=== PATIENT | female | born 1965 ===

== ENCOUNTER → 2024-02-29 06:12 | Outpatient (CLI) | payer OTHER ==
[2024-02-29 07:13] LABS: HEMATOCRIT 40.4 % (36.0-45.00); HEMOGLOBIN 13.8 g/dL (12.0-15.00); MEAN CELL VOLUME 89.2 fL (80.00-100.00); MEAN CORPUSCULAR HEMOGLOBIN 30.4 pg (27.00-32.0); MEAN CORPUSCULAR HGB CONC 34.1 g/dl (32.0-36.0); PLATELET COUNT 251 K/uL (150-450); RED BLOOD COUNT 4.54 M/uL (4.00-6.00); RED CELL DISTRIBUTION WIDTH 13.7 % (11.5-14.5)
[2024-02-29 07:15] LABS: URINE APPEARANCE Clear; URINE BILIRRUBIN Negative (NEGATIVE); URINE BLOOD NHT; URINE COLOR Yellow; URINE GLUCOSE Negative (NEGATIVE); URINE KETONE Negative (NEGATIVE); URINE LEUKOCYTE Negative; URINE NITRATE Negative; URINE PROTEIN Negative (NEGATIVE); URINE UROBILINOGEN 0.2 E.U./dl
[2024-02-29 07:16] LABS: URINE BACTERIA 12.5 uL (0.0-1933); URINE EPITHELIAL CELLS 6.6 uL (0.0-38.8); URINE RBC 20.6 uL (0.0-20.8); URINE WBC 1.8 uL (0.0-23.2)
[2024-02-29 07:26] LABS: CREATININE URINE RANDOM 72.6 MG/DL (30-125)
[2024-02-29 07:37] LABS: URINE CAST 0.15 uL (0.0-1.40)
[2024-02-29 08:06] LABS: ALBUMIN 3.3 gm/dL (3.4-5.0); BILIRUBIN TOTAL 0.32 mg/dL (0.3-1.2); CALCIUM 9.4 mg/dL (8.5-10.1); CHOL HDL RATIO 5.1 (0-5.0); CREATININE SERUM 0.51 mg/dL (0.55-1.02); FREE TRIODOTIRONINE 2.87 pg/ml (2.18-3.98); GFR 124.74; GLOBULINA 3.7 G/DL (2.4-3.5); POTASSIUM 4.57 mEq/L (3.5-5.1); T4 FREE 0.99 NG/ML (0.76-1.46); T4 TOTAL 8.01 UG/DL (4.8-13.9); TSH 0.974 uIU/mL (0.358-3.74)
[2024-02-29 12:14] LABS: FOLIC ACID > 20.00 ng/ml (4.78-20); VITAMIN D3 25 HYDROXY 62.25 ng/ml (30-120)
== END | disposition home or self-care (01) ==
LOC: LAB 06:12
PROVIDERS: ATTEND Internal Medicine
DX: D64.9 Anemia, unspecified (principal); N39.0 Urinary tract infection, site not specified; E03.9 Hypothyroidism, unspecified; R53.1 Weakness; E78.5 Hyperlipidemia, unspecified; E78.2 Mixed hyperlipidemia; D55.9 Anemia due to enzyme disorder, unspecified; R80.9 Proteinuria, unspecified; E11.9 Type 2 diabetes mellitus without complications; M81.0 Age-related osteoporosis without current pathological fracture; R73.01 Impaired fasting glucose; D52.8 Other folate deficiency anemias; D50.8 Other iron deficiency anemias; R10.9 Unspecified abdominal pain; Z12.11 Encounter for screening for malignant neoplasm of colon; Z00.00 Encounter for general adult medical examination without abnormal findings

== ENCOUNTER 2024-09-24 06:08 | Outpatient (CLI) | payer OTHER ==
[2024-09-24 07:45] LABS: ALBUMIN 3.4 gm/dL (3.4-5.0); BILIRUBIN TOTAL 0.34 mg/dL (0.3-1.2); CALCIUM 9.2 mg/dL (8.5-10.1); CHOL HDL RATIO 3.4 (0-5.0); CREATININE SERUM 0.53 mg/dL (0.55-1.02); GFR 118.9; GLOBULINA 3.6 G/DL (2.4-3.5); POTASSIUM 4.49 mEq/L (3.5-5.1)
== END 2024-09-24 06:12 | disposition home or self-care (01) ==
LOC: LAB 06:08
DX: E78.00 Pure hypercholesterolemia, unspecified (principal)

== ENCOUNTER → 2024-11-21 06:09 | Outpatient (CLI) | payer OTHER ==
[2024-11-21 08:07] LABS: ALBUMIN 3.4 gm/dL (3.4-5.0); BILIRUBIN TOTAL 0.42 mg/dL (0.3-1.2); CALCIUM 9.6 mg/dL (8.5-10.1); CREATININE SERUM 0.45 mg/dL (0.55-1.02); GFR 143.61; GLOBULINA 3.4 G/DL (2.4-3.5); POTASSIUM 4.94 mEq/L (3.5-5.1); TOTAL PROTEIN 6.8 gm/dL (6.4-8.2)
== END | disposition home or self-care (01) ==
LOC: LAB 06:09
PROVIDERS: ATTEND Internal Medicine
DX: R10.9 Unspecified abdominal pain (principal)

== ENCOUNTER 2025-04-16 06:23 | Outpatient (CLI) | payer OTHER ==
[2025-04-16 07:52] LABS: ALT/SGPT 37.0 U/L (12-78); AST/SGOT 17.0 U/L (15-37); BILIRUBIN TOTAL 0.33 mg/dL (0.3-1.2); BUN CREA RATIO 19.0 (7.0-25.0); CHOL HDL RATIO 3.7 (0-5.0); CREATININE SERUM 0.54 mg/dL (0.55-1.02); GFR 116.36; GLOBULINA 3.3 G/DL (2.4-3.5); GLUCOSE FASTING 77.0 mg/dL (65-100); HDL 67.0 mg/dl (40-60); LDL 175.0 mg/dl (0-130); OSMOLALITY SERUM 281.0 MOSM/KG (275-295); VLDL 8.0 (0-39)
== END 2025-04-16 06:25 | disposition home or self-care (01) ==
LOC: LAB 06:23
PROVIDERS: ATTEND Internal Medicine Cardiovascular Disease
DX: E78.00 Pure hypercholesterolemia, unspecified (principal)